=== PATIENT | female | born 1970 | race Caucasian/White ===

== ENCOUNTER 2022-06-12 20:11 | Emergency (ER) | payer OTHER ==
[2022-06-12 22:51] LABS: BASOPHIL 0.4 % (0-2); EOSINOPHIL 0.1 % (0-5); HCT 43.3 % (37.0-47.0); HGB 15.1 g/dl (12.5-16.0); LYMPHOCYTE 3.7 % (15-48); MCH 30.6 pg (25.0-31.0); MCHC 34.9 g/dL (32.0-36.0); MCV 87.7 fL (78.0-100.0); MONOCYTE 6.2 % (0-12); MPV 9.5 fL (6.0-9.5); NEUTROPHIL 89.2 % (41-80); NRBC 0; PLT 308 K/uL (150-400); RBC 4.94 M/uL (4.20-5.40); RDW 12.2 % (11.5-14.0)
[2022-06-12 23:09] LABS: BILIRUBIN - TOTAL 0.5 mg/dL (0.2-1.0); BUN/CREAT RATIO (CALC) 16.5 RATIO; CREATININE 0.85 mg/dL (0.51-0.95); GLOBULIN (CALCULATION) 3.4 g/dL; POTASSIUM 3.5 mmol/L (3.5-5.1); TOTAL PROTEIN 7.4 g/dL (6.4-8.2)
[2022-06-12 23:43] LABS: BILIRUBIN NEGATIVE (NEGATIVE); BLOOD 1+ Ery/uL (NEGATIVE); CLARITY CLEAR (CLEAR); GLUCOSE (U) TRACE mg/dL (NORMAL); LEUKOCYTES 3+ Leu/uL (NEGATIVE); NITRITE POSITIVE (NEGATIVE); PROTEIN 2+ mg/dL (NEGATIVE)
[2022-06-12 23:45] LABS: COLOR ORANGE (YELLOW)
[2022-06-12 23:50] LABS: AMORPHOUS URATES CRYSTALS MODERATE; BACTERIA 3+; MUCOUS MODERATE; URINARY WBC TNTC
[2022-06-13] MEDS ORDERED: ONDANSETRON ODT4 MG PO (00:13)
[2022-06-13] MEDS ORDERED: CEFDINIR300 MG PO (00:13)
[2022-06-13] MEDS ORDERED: NORCO 5-325 TA1 EACH PO (00:13)
== END 2022-06-13 01:01 | disposition home or self-care (01) ==
LOC: FER 20:11
PROVIDERS: Internal Medicine
DX: N12 Tubulo-interstitial nephritis, not specified as acute or chronic (principal)
CPT/HCPCS: 36415; 80053; 81001; 84145; 85025; 87076; 87088; 87186; J0696; J1170; J1885; J2405